=== PATIENT | female | born 1985 | race Caucasian/White ===

== ENCOUNTER 2018-11-11 08:56 | Emergency (ER) | payer OTHER ==
[2018-11-11 09:13] LABS: Bilirubin Negative (Negative); Blood, Urine Negative (Negative); Glucose, Urine (Dipstick) Negative (Negative); Leukocyte Small (Negative); Nitrite Negative (Negative); Protein, Urine (Dipstick) Negative (Neg-Trace); Urobilinogen 0.2 mg/dL (0.2-1.0)
[2018-11-11 09:16] LABS: Clarity Slightly Cloudy (Clear)
[2018-11-11 09:20] LABS: Pregnancy Test - Urine (BHCG) Negative (Negative); Pregu Control Background? CLEAR/WHITE (CLR/WHITE); Pregu Control Bar Appear? YES (CONTROL BAR)
[2018-11-11 09:30] LABS: Bacteria/HPF Rare-Few HPF (None Seen); Hyaline Casts/LPF NONE SEEN LPF (0-3 Hyaline); RBC/HPF 0-3 HPF (0-3); Squamous Epithelial 0-3 HPF (0-3); WBC/HPF 0-3 HPF (0-3)
== END 2018-11-11 09:33 | disposition home or self-care (01) ==
LOC: SCSER 08:56
DX: M54.5 Low back pain (principal); D64.9 Anemia, unspecified
CPT/HCPCS: 81003; 81015; 81025; 99283

== ENCOUNTER 2019-04-30 13:29 | Emergency (ER) | payer OTHER ==
[2019-04-30 14:22] LABS: Bilirubin Negative (Negative); Blood, Urine Moderate (Negative); Clarity CLEAR (Clear); Glucose, Urine (Dipstick) Negative (Negative); Leukocyte Negative (Negative); Nitrite Negative (Negative); Protein, Urine (Dipstick) Negative (Neg-Trace); Urobilinogen 0.2 mg/dL (0.2-1.0)
[2019-04-30 14:25] LABS: Bacteria/HPF None Seen HPF (None Seen); Hyaline Casts/LPF 0-3 HYALINE CAST LPF (0-3 Hyaline); RBC/HPF 0-3 HPF (0-3); Squamous Epithelial None Seen HPF (0-3); WBC/HPF 0-3 HPF (0-3)
== END 2019-04-30 15:23 | disposition home or self-care (01) ==
LOC: ERS 13:29
DX: O20.0 Threatened abortion (principal); D50.9 Iron deficiency anemia, unspecified; Z3A.01 Less than 8 weeks gestation of pregnancy
CPT/HCPCS: 36415; 81003; 81015; 84702; 99284

== ENCOUNTER 2019-05-01 14:25 | Emergency (ER) | payer OTHER ==
[2019-05-01 15:43] LABS: #Eosinphils 0.2 thou/uL (0.0-0.7); #Lymphocytes 2.3 thou/uL (1.20-3.40); #Monocytes 0.4 thou/uL (0.11-0.59); #Neutrophils 6.1 thou/uL (1.40-6.50); %Basophils 0.4 % (0.0-1.0); %Eosinophils 2.3 % (0.0-10.0); %Lymphocytes 25.2 % (21.0-51.0); %Monocytes 4.6 % (0.0-10.0); %Neutrophils 67.5 % (42.0-75.0); Hemoglobin 12.8 g/dL (12.0-16.0); Mean Corpuscular HGB CONC 33.2 g/dL (32.0-36.0); Mean Corpuscular Hemoglobin 27.5 pg (27.0-31.0); Mean Corpuscular Volume 82.7 fL (78.0-98.0); Mean Platelet Volume 7.9 fL (7.4-10.4); Platelet Count 302 thou/uL (130-400); RBC Distribution Width 13.7 % (11.5-14.5); Red Blood Cell (RBC) Count 4.65 mill/uL (4.20-5.40); White Blood Cell (WBC) Count 9.1 thou/uL (4.8-10.8)
[2019-05-01 16:00] LABS: ALT (SGPT) 19 U/L (8-55); AST (SGOT) 16 U/L (5-34); Albumin 4.3 g/dL (3.5-5.0); Alkaline Phosphatase 92 U/L (40-150); Anion Gap 12 mmol/L (10-20); BUN (Urea Nitrogen) 7 mg/dL (7.0-18.7); Bilirubin, Total 0.3 mg/dL (0.2-1.2); Calc. Creatinine Clearance 0 mL/min (70-130); Calcium 9.2 mg/dL (7.8-10.44); Carbon Dioxide 26 mmol/L (22-29); Chloride 104 mmol/L (98-107); Estimated GFR-MDRD Greater than 90; Globulin 3.3 g/dL (2.4-3.5); Glucose 86 mg/dL (70-105); Potassium 3.9 mmol/L (3.5-5.1); Protein, Total 7.6 g/dL (6.0-8.3); Sodium 138 mmol/L (136-145)
--- NOTE | 2019-05-01 17:05 | ULT ---
Exam: Pelvic ultrasound using transvaginal approach. Exam includes vascular duplex with color and spectral Doppler imaging of the ovaries. FINDINGS: The uterus measures 9.2 x 4.9 x 6.0 cm. There is an intrauterine small gestational sac and yolk sac. A questionable pole is seen which would indicate gestational age of 6 weeks 0 days. Questionable heart rate at 71 bpm which is abnormally low. By gestational sac size gestational age should be 5 weeks 2 days. Small hypodensity within the uterine fundus possibly a small fibroid. Right ovary measures 1.4 x 2.4 x 3.1 cm. Left ovary measures 2.0 x 3.0 x 3.3 cm Vascular duplex exam was limited. No evidence for ovarian torsion. IMPRESSION: Evidence for an intrauterine gestational sac containing a yolk sac and possible pole with possi ble heart rate at 71 bpm. Follow-up serum hCGs are recommended. If there remains concern for viability, follow-up ultrasound study in a week should be considered.
== END 2019-05-01 17:47 | disposition home or self-care (01) ==
LOC: ERS 14:25
DX: O20.9 Hemorrhage in early pregnancy, unspecified (principal); O99.011 Anemia complicating pregnancy, first trimester; Z3A.01 Less than 8 weeks gestation of pregnancy
CPT/HCPCS: 36415; 76856; 80053; 84702; 85025

== ENCOUNTER 2019-05-05 08:13 | Emergency (ER) | payer OTHER ==
[2019-05-05 09:15] LABS: #Eosinphils 0.2 thou/uL (0.0-0.7); #Monocytes 0.5 thou/uL (0.11-0.59); #Neutrophils 7.1 thou/uL (1.40-6.50); %Basophils 0.5 % (0.0-1.0); %Eosinophils 1.9 % (0.0-10.0); %Monocytes 4.6 % (0.0-10.0); %Neutrophils 72.9 % (42.0-75.0); Hemoglobin 12.5 g/dL (12.0-16.0); Mean Corpuscular HGB CONC 32.4 g/dL (32.0-36.0); Mean Corpuscular Hemoglobin 27.1 pg (27.0-31.0); Mean Corpuscular Volume 83.6 fL (78.0-98.0); Mean Platelet Volume 7.9 fL (7.4-10.4); Platelet Count 295 thou/uL (130-400); RBC Distribution Width 13.8 % (11.5-14.5); Red Blood Cell (RBC) Count 4.62 mill/uL (4.20-5.40); White Blood Cell (WBC) Count 9.8 thou/uL (4.8-10.8)
[2019-05-05 09:37] LABS: ALT (SGPT) 26 U/L (8-55); AST (SGOT) 21 U/L (5-34); Albumin 4.4 g/dL (3.5-5.0); Alkaline Phosphatase 90 U/L (40-150); Anion Gap 12 mmol/L (10-20); BUN (Urea Nitrogen) 12 mg/dL (7.0-18.7); Bilirubin, Total 0.3 mg/dL (0.2-1.2); Calc. Creatinine Clearance 0 mL/min (70-130); Calcium 9.7 mg/dL (7.8-10.44); Carbon Dioxide 25 mmol/L (22-29); Chloride 105 mmol/L (98-107); Estimated GFR-MDRD Greater than 90; Globulin 3.2 g/dL (2.4-3.5); Glucose 89 mg/dL (70-105); Potassium 4.1 mmol/L (3.5-5.1); Protein, Total 7.6 g/dL (6.0-8.3); Sodium 138 mmol/L (136-145)
[2019-05-05 10:36] LABS: Bilirubin Small (Negative); Blood, Urine Large (Negative); Glucose, Urine (Dipstick) Negative (Negative); Leukocyte Negative (Negative); Nitrite Negative (Negative); Protein, Urine (Dipstick) 100 mg/dL (Neg-Trace); Urobilinogen 0.2 mg/dL (Less than 2)
[2019-05-05 10:44] LABS: Clarity Hazy (Clear)
[2019-05-05 10:46] LABS: Bacteria/HPF None Seen HPF (None Seen); RBC/HPF Greater than 50 HPF (0-3); Squamous Epithelial 0-3 HPF (0-3); WBC/HPF 0-3 HPF (0-3)
--- NOTE | 2019-05-05 11:57 | ULT ---
PELVIC ULTRASOUND: Date: 05/05/19 HISTORY: Irregular increase in beta HCG level with increasing vaginal bleeding. COMPARISON: 05/01/19. FINDINGS: There is a punctate echogenic focus seen within the cervix, which may represent either a prominent ve ssel or small calcification. There is a very small hypoechoic focus within the anterior aspect body of the uterus measuring 0.7 cm , which may represent a small uterine fibroid. There is an irregular collection seen within the endometrial canal. This area was also seen on the pr ior exam. There is an oval echogenic structure within the fluid collection. This may represent gestat ional sac with a pole. The crown-rump length measures 0.6 cm, which would correspond to gestati onal age by ultrasound of 6 weeks and 3 days. Cardiac Doppler evaluation of this region does demonstr ate what appears to be heart tones, but the heart tones are diminished at 64 beats/minute . On the prior examination, there was suggestion of a yolk sac, but this is not appreciated on today' s examination. The ovaries demonstrate a grossly normal sonographic appearance bilaterally with evidence of flow wit hin each ovary based on spectral analysis of the Doppler waveform. No free fluid is seen in the cul-de-sac. IMPRESSION: Persistent collection within the endometrial canal, but the collection is slightly irregular in appea dane. There was suggestion of a yolk sac on the prior study, which is not appreciated on today's exa mination. However, there is an echogenic structure within this heterogeneous collection which may rep resent a small pole, and Doppler evaluation of this region again demonstrates what appears to b e heart tones with a heart rate of 64 beats/minute, which is abnormally decreased. ELECTROMECHANIC consultation is suggested for further evaluation. POS: [facility]
== END 2019-05-05 11:55 | disposition home or self-care (01) ==
LOC: ERS 08:13
DX: O03.4 Incomplete spontaneous abortion without complication (principal); D50.9 Iron deficiency anemia, unspecified
CPT/HCPCS: 36415; 76856; 80053; 81003; 81015; 84702; 85025; 86900; 86901

== ENCOUNTER 2019-05-12 08:52 | Outpatient (CLI) | payer OTHER ==
--- NOTE | 2019-05-12 12:04 | ULT ---
PELVIC ULTRASOUND INCLUDING TRANSABDOMINAL AND TRANSVAGINAL AND VASCULAR DUPLEX: HISTORY: Threatened AB. COMPARISON: 05/05/2019. FINDINGS: The uterus measures 9.5 x 5.0 x 6.7 cm. The right ovary measures 3.0 x 2.3 x 2.6 cm. The left ovary measures 2.4 x 2.1 x 2.9 cm. Again noted is a small oval fluid collection within the endometrium showing no significant change fro m the prior study. No evidence for heart rate. Appearance is most consistent with that of mis sed AB. Correlate with serum HCG. Unremarkable right and left ovaries. Probable very small uterine fundal fibroid, stable. Vascular flow is documented to both ovaries. No evidence for ovarian torsion. No abscess or abnorma l fluid collection. IMPRESSION: Overall stable small abnormal gestational sac within the uterus without evidence for heart rate . Findings are consistent with that of incomplete . Correlate with today's serum HCG. POS: [facility]
== END 2019-05-12 08:53 | disposition home or self-care (01) ==
LOC: SCSULT 08:52
PROVIDERS: ATTEND Nurse Practitioner
DX: O20.0 Threatened abortion (principal); R93.89 Abnormal findings on diagnostic imaging of other specified body structures
CPT/HCPCS: 76856

== ENCOUNTER 2019-10-25 09:10 | Emergency (ER) | payer MEDICAID, OTHER, SELFPAY ==
[2019-10-25 09:52] LABS: #Basophils 0.1 thou/uL (0.0-0.2); #Eosinphils 0.1 thou/uL (0.0-0.7); #Lymphocytes 1.8 thou/uL (1.20-3.40); #Monocytes 0.3 thou/uL (0.11-0.59); #Neutrophils 3.7 thou/uL (1.40-6.50); %Basophils 1.1 % (0.0-1.0); %Eosinophils 1.1 % (0.0-10.0); %Monocytes 5.4 % (0.0-10.0); %Neutrophils 62.5 % (42.0-75.0); Hemoglobin 13.4 g/dL (12.0-16.0); Mean Corpuscular HGB CONC 33.8 g/dL (32.0-36.0); Mean Corpuscular Volume 82.8 fL (78.0-98.0); Mean Platelet Volume 7.7 fL (7.4-10.4); Platelet Count 302 thou/uL (130-400); RBC Distribution Width 13.1 % (11.5-14.5); Red Blood Cell (RBC) Count 4.77 mill/uL (4.20-5.40); White Blood Cell (WBC) Count 5.9 thou/uL (4.8-10.8)
[2019-10-25 09:57] LABS: BHCG - Serum POSITIVE (NEGATIVE); Pregs Control Background? CLEAR/WHITE (CLR/WHITE); Pregs Control Bar Appear? YES (CONTROL BAR)
--- NOTE | 2019-10-25 10:46 | ULT ---
US Pelvic Transvag W Doppler HISTORY: Pelvic pain COMPARISON: None TECHNIQUE: Multiple grayscale and color Doppler images were obtained in a transabdominal and transvag inal pelvic ultrasound. Spectral analysis of the Doppler waveforms of the ovaries were performed. FINDINGS: CERVIX: Unremarkable UTERUS: Normal in size without focal abnormality. ENDOMETRIAL STRIPE: 7.3 mm. No free fluid is present. There are no discrete ovarian lesions visualized. Doppler color flow reveals flow to each ovary. IMPRESSION: No acute pelvic abnormality. Possibility of an ectopic is not excluded by a nor mal pelvic ultrasound. Therefore correlation with beta hCG values and continued clinical follow-up is recommended.
== END 2019-10-25 11:26 | disposition home or self-care (01) ==
LOC: ERS 09:10
DX: O20.9 Hemorrhage in early pregnancy, unspecified (principal); O99.011 Anemia complicating pregnancy, first trimester; Z3A.01 Less than 8 weeks gestation of pregnancy
CPT/HCPCS: 36415; 76856; 84702; 84703; 85025; 86900; 86901

== ENCOUNTER 2019-10-27 08:29 | Emergency (ER) | payer SELFPAY | END 2019-10-27 10:25 | disposition home or self-care (01) | LOC: ERS 08:29 | DX: O03.9 Complete or unspecified spontaneous abortion without complication (principal); D50.9 Iron deficiency anemia, unspecified | CPT/HCPCS: 36415; 84702; 99284 ==

== ENCOUNTER 2020-07-22 03:35 | Day surgery (SDC) ==
[2020-07-22 03:57] VITALS: BMI 36.0
[2020-07-22] MEDS ORDERED: hydrALAZINE 20 MG/ML VIAL SLOW IVP PRN (04:14)
--- NOTE | 2020-07-22 04:15 | PDOC.LDHP ---
Labor and Delivery H&P Chief complaint: contractions HPI: 35YO @ 31.4 WGA presenting for evaluation for contractions. States while lying at bed @ ~1200 she woke up having sharp shooting pains in her R lower back with radiation around to her right groin. Reported to nursing staff it feels like she has been having "5 mini contractions every minute." States the pain has been constant since its onset and waxes & wanes in intensity from 3-8/10. Is exacerbated with movement or changing positions. Denies any associated fever/chills, dysuria, hematuria or N/V/D/C. Endorses frequent movement. Tried soaking in the tub before going to bed but did not try anything else for pain relief before deciding to come in for evaluation. Current gestational age (weeks): 31 (31.4) Due date: 09/19/20 Dating criteria: last menstrual period Grav: 7 Para: 4 (1396) OB History Details: #1-4: term SVDs w/o complications #5-6: 2 1T SABs Abnormal US findings: No Past Medical History: Obesity Current medications: pre-tonia vitamins Previous surgical history: other (bilateral plantar fasciitis release) Allergies/Adverse Reactions: Allergies Allergy/AdvReac Type Severity Reaction Status Date / Time Penicillins Allergy Intermediate Hives Verified 07/22/20 03:52 Social history: none - Physical Exam Vital signs reviewed and normal: yes General: other (mild distress with movement) Heart: RRR Lungs: nonlabored breathing Abdomen: NTTP Extremeties: no edema FHT: category 1 [place] contractions every: none noted - OB Labs Blood type: O RH: positive Antibody Screen: negative HIV: negative RPR: negative HEPSAg: negative 1 hour GCT: positive (137) 3 hour GTT: negative GBS: unknown Urine drug screen: negative Rubella: immune - Plan Plan: other -: 35YO @ 31.4 WGA presenting for evaluation for contractions. Right low back and pelvic pain: - No contractions palpated or noted on the monitor since arrival. FHTs reassuring w/ and fetus has been very active which has been audible on the monitor since arrival as well. No urinary symptoms or CVA tenderness & vitals WNLs. Pain exacerbated with movement and movement on exam most consistent for MSK pain in . Offered stadol IM x1 for pain control and to help her sleep but patient reported she preferred just to take tylenol at home. Dispo: Will discharge home with return precautions & instructions to heating pads, belly band, soaking in tub, and regularly RUSTY tylenol and/or benadryl for pain relief & rest. Instructed to keep appt with PCP on 07/27/2020. Addendum - Attending - Attending Attestation Date/Time: 07/22/20 [id number] I personally evaluated the patient and discussed the management with Dr. Velazquez. I agree with the History, Examination, Assessment and Plan documented above.
[2020-07-22] MEDS ORDERED: Butorphanol Tartrate 1 MG/ML VIAL IM ONE (05:00)
== END 2020-07-22 04:55 | disposition home or self-care (01) ==
LOC: L&D/OP 03:35
PROVIDERS: ATTEND Obstetrics & Gynecology
DX: O47.03 False labor before 37 completed weeks of gestation, third trimester (principal); Z3A.31 31 weeks gestation of pregnancy; Z88.0 Allergy status to penicillin
CPT/HCPCS: 99282

== ENCOUNTER 2020-08-31 09:44 | Inpatient (IN) | payer MEDICAID, OTHER ==
[2020-08-31] MEDS ORDERED: Promethazine HCl 25 MG/ML VIAL IM PRN ×2 (10:20→22:28)
[2020-08-31] MEDS ORDERED: Ondansetron PF 4 MG/2 ML Vial IVP PRN ×2 (10:20→22:28)
[2020-08-31] MEDS ORDERED: HYDROcodone/Acetaminophen 5/325 mg Tablet PO PRN ×2 (10:20)
[2020-08-31] MEDS ORDERED: Lidocaine 1% (PF) 30 ML VIAL SC PRN (10:20)
[2020-08-31] MEDS ORDERED: NS / Oxytocin 40 units/1000ml 1,000 ML IV PRN (10:20)
[2020-08-31] MEDS ORDERED: Ibuprofen 800 MG TAB PO PRN (10:20)
[2020-08-31] MEDS ORDERED: hydrALAZINE 20 MG/ML VIAL SLOW IVP PRN (10:20)
[2020-08-31] MEDS ORDERED: NS w/ Oxytocin 10 units 500 ML IV SCH ×2 (10:30)
[2020-08-31 10:33] VITALS: BMI 37.3
[2020-08-31] MEDS ORDERED: Bupivacaine HCl 0.5%/Epinephrine 1:200,000/PF 30 ml Vial ONE (12:06)
[2020-08-31] MEDS: Lactated Ringer's 1,000 ML IV SCH ×3 (12:21→22:31)
[2020-08-31] MEDS: Clindamycin/D5W 900 MG in Premix Bag 1 BAG IVPB SCH ×2 (12:22→19:50)
[2020-08-31 12:34] LABS: Hemoglobin 10.9 g/dL (12.0-16.0); Mean Corpuscular HGB CONC 33.4 g/dL (32.0-36.0); Mean Corpuscular Hemoglobin 25.5 pg (27.0-31.0); Mean Corpuscular Volume 76.4 fL (78.0-98.0); Mean Platelet Volume 9.2 fL (7.4-10.4); Platelet Count 291 thou/uL (130-400); RBC Distribution Width 15.3 % (11.5-14.5); Red Blood Cell (RBC) Count 4.28 mill/uL (4.20-5.40); White Blood Cell (WBC) Count 10.3 thou/uL (4.8-10.8)
[2020-08-31 12:50] LABS: ALT (SGPT) 7 U/L (8-55); AST (SGOT) 11 U/L (5-34); Albumin 3.5 g/dL (3.5-5.0); Alkaline Phosphatase 212 U/L (40-110); Anion Gap 16 mmol/L (10-20); BUN (Urea Nitrogen) 6 mg/dL (7.0-18.7); Bilirubin, Total 0.2 mg/dL (0.2-1.2); Calc. Creatinine Clearance 203 mL/min (70-130); Calcium 8.8 mg/dL (7.8-10.44); Carbon Dioxide 20 mmol/L (22-29); Chloride 106 mmol/L (98-107); Estimated GFR-MDRD Greater than 90; Globulin 3.2 g/dL (2.4-3.5); Glucose 85 mg/dL (70-105); Potassium 4.1 mmol/L (3.5-5.1); Protein, Total 6.7 g/dL (6.0-8.3); Sodium 138 mmol/L (136-145)
[2020-08-31 13:08] LABS: HBSAg Index 0.19 S/CO (0-0.99); Hep B Surf Ag Non-Reactive S/CO (NonReactive)
[2020-08-31 13:12] LABS: Syphilis Antibody Nonreactive (Nonreactive); Syphilis Antibody Index 0.07 S/CO (<1.00 Non-Reactive)
--- NOTE | 2020-08-31 13:12 | PDOC.LDHP ---
Labor and Delivery H&P Chief complaint: other (sent from clinic w elevated BP) HPI: Pt seen in clinic today w BP 140-150/90s. No LOCKE. Current gestational age (weeks): 37 Due date: 09/19/20 Dating criteria: last menstrual period, first trimester ultrasound Grav: 7 Para: 4 OB History Details: previous x 4 Current complications: gestational hypertension Abnormal US findings: No Current medications: iron Previous surgical history: other (foot) Allergies/Adverse Reactions: Allergies Allergy/AdvReac Type Severity Reaction Status Date / Time Penicillins Allergy Intermediate Hives Verified 08/31/20 09:56 Social history: none - Physical Exam Vital signs reviewed and normal: yes (mild range to normal BP) General: NAD Heart: RRR Lungs: CTAB Abdomen: gravid Extremeties: no edema FHT: category 1 - Vaginal Exam cm dilated: 1 Effacement: 25% Station: -3 - OB Labs Blood type: O RH: positive Antibody Screen: negative HIV: negative RPR: negative HEPSAg: negative 1 hour GCT: positive 3 hour GTT: WNL GBS: positive (clinda sensitive) Urine drug screen: negative Rubella: immune - Assessment L&D Assessment: medically indicated induction (PIH at term) - Plan Plan: admit to L&D, cervical ripening, labor augmentation if indicated, GBS antibiotic prophylaxis, informed consent obtained, anesthesia consult for pain management -: IOL for elevated BP at term. Normal to mild range BP, one severe range when collecting C19 nasal swab. AROM on admit exam with clear fluid noted.
[2020-08-31] MEDS: NIFEdipine 10 MG CAP PO PRN ×2 (15:17→19:19)
--- NOTE | 2020-08-31 16:28 | PDOC.LDPN ---
Labor & Delivery Progress Note - Subjective Subjective: painful contractions - Objective Vital signs reviewed and normal: yes General: breathing through contractions Dilation: 3 Effacement: 75% Station: -2 FHT: category 1 [place] contractions every: 5 - Assessment (1) 37 weeks gestation of Code(s): Z3A.37 - 37 WEEKS GESTATION OF Current Visit: Yes Status: Acute (2) Gestational hypertension Code(s): O13.9 - GESTATIONAL HTN W/O SIGNIFICANT PROTEINURIA, UNSP TRIMESTER Current Visit: Yes Status: Acute Plan: continue plan of care
[2020-08-31] MEDS: Butorphanol Tartrate 1 MG/ML VIAL SLOW IVP PRN ×2 (17:01→18:03)
[2020-08-31] MEDS ORDERED: Misoprostol 200 MCG TAB ONE (19:59)
[2020-08-31] MEDS ORDERED: Carboprost 250 MCG/ML AMP ONE (19:59)
--- NOTE | 2020-08-31 20:46 | PDOC.LDPN ---
Labor & Delivery Progress Note - Subjective Subjective: painful contractions - Objective General: breathing through contractions Dilation: 7 Effacement: 75% Station: -1 FHT: category 1 - Assessment (1) 37 weeks gestation of Code(s): Z3A.37 - 37 WEEKS GESTATION OF Current Visit: Yes Status: Acute (2) Gestational hypertension Code(s): O13.9 - GESTATIONAL HTN W/O SIGNIFICANT PROTEINURIA, UNSP TRIMESTER Current Visit: Yes Status: Acute Plan: continue plan of care
[2020-08-31] MEDS ORDERED: Fentanyl 4 mcg/Bup 0.1% Cadd 100 ML ONE (21:43)
[2020-08-31] MEDS ORDERED: Naloxone HCl 0.4 mg/ml Vial IVP PRN ×2 (22:28)
[2020-08-31] MEDS ORDERED: Lactated Ringer's 500 ML IV PRN (22:28)
[2020-08-31] MEDS ORDERED: Acetaminophen 325 MG TAB PO PRN (22:28)
[2020-08-31] MEDS ORDERED: diphenhydrAMINE 50 MG/ML VIAL IVP PRN (22:28)
[2020-08-31] MEDS ORDERED: EPHEDRINE 25 MG/5 ML SYRINGE SLOW IVP PRN (22:28)
[2020-08-31] MEDS ORDERED: Fentanyl 4 mcg/Bupivacaine 0.1% Cassette 100 ML EPIDURAL SCH (22:30)
[2020-08-31] MEDS ORDERED: Communication Order-Pharmacy FS SCH (22:30)
--- NOTE | 2020-09-01 01:41 | PDOC.OPDEL ---
OB Operative/Delivery Note Delivery Dr/Surgeon: Luis Pre-Delivery Diagnosis: medically indicated induction (PIH @ term) Procedure/Post Delivery Dx: spontaneous vaginal delivery Weeks gestation: 37 Anesthesia: epidural - Findings A Sex: female - 1 min: 8 - 5 min: 9 - Additional Findings/Plan Placenta delivered: spontaneous Repaired Obstetrical Laceration: none Estimated blood loss: 400ml Compilations/Other Findings: uterine atony resolved w pitocin and hemabate Post delivery plan: routine recovery
[2020-09-01] MEDS ORDERED: diphenhydrAMINE 25 MG CAP PO PRN (04:23)
[2020-09-01] MEDS ORDERED: hydrALAZINE 20 MG/ML VIAL SLOW IVP PRN (04:23)
[2020-09-01] MEDS ORDERED: Milk Of Magnesia 30 ML UDCUP PO PRN (04:23)
[2020-09-01] MEDS ORDERED: Lanolin Ointment 7 GM TUBE TOP PRN (04:23)
[2020-09-01] MEDS ORDERED: NS / Oxytocin 40 units/1000ml 1,000 ML IV SCH (04:23)
[2020-09-01] MEDS ORDERED: Bisacodyl 10 MG SUPP PR PRN (04:23)
[2020-09-01] MEDS ORDERED: HYDROcodone/Acetaminophen 5/325 mg Tablet PO PRN ×3 (04:23→06:32)
[2020-09-01] MEDS ORDERED: Ondansetron PF 4 MG/2 ML Vial IVP PRN (04:23)
[2020-09-01] MEDS ORDERED: Preparation H Ointment 28 GM TUBE PR PRN (04:23)
--- NOTE | 2020-09-01 08:15 | PDOC.PP ---
Post Progress Note Post Day #: 0-1 Subjective: No PIH symptoms. PO intake tolerated: yes Flatus: yes Ambulation: yes Vital Signs (12 hours) Temp Pulse Resp BP Pulse Ox 09/01/20 08:09 97.8 F 87 20 144/80 H 98 09/01/20 05:30 97.9 F 97 18 125/67 09/01/20 04:30 98 09/01/20 04:23 98.2 F 90 18 137/71 99 Weight Weight 204 lb - Physical Examination Abdominal: lochia, no distention, appropriately TTP Extremities: negative homans (B) Result Diagrams: 08/31/20 11:46 08/31/20 11:46 Additional Labs: Post Labs Hep Bs Antigen Non-Reactive S/CO (NonReactive) 08/31/20 11:46 Blood Type O POSITIVE 08/31/20 11:46 - Assessment/Plan Post day 0-1. Induction for PIH. Majority of blood pressures normotensive. Anticipate discharge in AM. Meds if blood pressures tren upwaeds- observe today...
[2020-09-01] MEDS: Prenatal Vitamin 1 TAB PO SCH (08:39)
[2020-09-01] MEDS: Docusate Calcium (SURFAK) 240 MG CAP PO SCH ×2 (08:39→21:01)
[2020-09-01] MEDS: Ferrous Sulfate 325 MG TAB PO SCH ×2 (08:40→17:03)
[2020-09-01] MEDS ORDERED: Adacel (T-DAP) 0.5 ML SYRINGE IM ONE (09:00)
[2020-09-01 11:59] LABS: SARS-CoV-2 MS2 Positive; SARS-CoV-2 N Gene Negative; SARS-CoV-2 S Gene Negative; SARS-CoV-2 by NAA Not Detected (NotDetected); SARS-CoV-2 orf1ab Negative
[2020-09-01] MEDS: Ibuprofen 800 MG TAB PO SCH ×3 (13:29→21:02)
[2020-09-01] MEDS: HYDROcodone/Acetaminophen 5/325 mg Tablet PO PRN ×2 (16:59→21:02)
[2020-09-01] MEDS: Clindamycin/D5W 900 MG in Premix Bag 1 BAG IVPB SCH (19:31)
[2020-09-02 01:13] VITALS: BP 125/68; TEMP 97.9
--- NOTE | 2020-09-02 04:47 | PDOC.PP ---
Post Progress Note Post Day #: 1 Subjective: Doing well, desires DC today if able due to other children at home PO intake tolerated: yes Flatus: yes Ambulation: yes Vital Signs (12 hours) Temp Pulse Resp BP Pulse Ox 09/02/20 01:00 97.9 F 76 16 125/68 09/01/20 20:10 97.7 F 81 16 134/79 98 09/01/20 18:00 97.7 F 86 16 135/72 Weight Weight 204 lb - Physical Examination General: NAD Respiratory: non-labored breathing Abdominal: + bowel sounds, lochia, no distention, appropriately TTP Extremities: negative homans (B) Neurological: no gross focal deficits Psychiatric: A&Ox3, normal affect Result Diagrams: 08/31/20 11:46 08/31/20 11:46 Additional Labs: Post Labs Hep Bs Antigen Non-Reactive S/CO (NonReactive) 08/31/20 11:46 Blood Type O POSITIVE 08/31/20 11:46 (1) Vaginal delivery Code(s): O80 - ENCOUNTER FOR FULL-TERM UNCOMPLICATED DELIVERY Status: Acute - Assessment/Plan PPD1 for this multigravida. Desires to go gome today if possible. BPs stable and wnl. OK for noon DC
[2020-09-02] MEDS: Ibuprofen 800 MG TAB PO SCH (05:10)
[2020-09-02] MEDS: Docusate Calcium (SURFAK) 240 MG CAP PO SCH (07:41)
[2020-09-02] MEDS: Prenatal Vitamin 1 TAB PO SCH (07:41)
[2020-09-02] MEDS: HYDROcodone/Acetaminophen 5/325 mg Tablet PO PRN (07:41)
== END 2020-09-02 10:01 | disposition home or self-care (01) | DRG 807 ==
LOC: L&D 09:44 → 3SW 09-01 04:20
PROVIDERS: ADMIT Obstetrics & Gynecology; ATTEND Obstetrics & Gynecology
PROC: 10907ZC Drainage of Amniotic Fluid, Therapeutic from Products of Conception, Via Natural or Artificial Opening (ICD-10-PCS; 2020-08-31)
PROC: 3E0P7VZ Introduction of Hormone into Female Reproductive, Via Natural or Artificial Opening (ICD-10-PCS; 2020-08-31)
PROC: 10E0XZZ Delivery of Products of Conception, External Approach (ICD-10-PCS; principal; 2020-09-01)
DX: O13.4 Gestational [pregnancy-induced] hypertension without significant proteinuria, complicating childbirth (principal); Z37.0 Single live birth; Z3A.37 37 weeks gestation of pregnancy; Z88.0 Allergy status to penicillin; O99.824 Streptococcus B carrier state complicating childbirth; Z20.828 Contact with and (suspected) exposure to other viral communicable diseases; O62.2 Other uterine inertia
CPT/HCPCS: 36415; 51702; 80053; 85027; 86780; 86850; 86900; 86901; 87340; 87635; J0595; J1200; J2590; J3490; U0003

== ENCOUNTER 2021-01-15 10:37 | Emergency (ER) | payer OTHER ==
[2021-01-15 11:45] LABS: Hemoglobin 11.3 g/dL (12.0-16.0); Mean Corpuscular HGB CONC 30.3 g/dL (32.0-36.0); Mean Corpuscular Hemoglobin 22.7 pg (27.0-31.0); Mean Corpuscular Volume 74.7 fL (78.0-98.0); Platelet Count 325 thou/uL (130-400); RBC Distribution Width 15.6 % (11.5-14.5); Red Blood Cell (RBC) Count 4.97 mill/uL (4.20-5.40); White Blood Cell (WBC) Count 7.1 thou/uL (4.8-10.8)
[2021-01-15 11:50] LABS: ALT (SGPT) 16 U/L (8-55); AST (SGOT) 13 U/L (5-34); Albumin 4.3 g/dL (3.5-5.0); Alkaline Phosphatase 104 U/L (40-110); Anion Gap 12 mmol/L (10-20); BUN (Urea Nitrogen) 10 mg/dL (7.0-18.7); Bilirubin, Total 0.3 mg/dL (0.2-1.2); Calc. Creatinine Clearance 0 mL/min (70-130); Calcium 9.3 mg/dL (7.8-10.44); Carbon Dioxide 23 mmol/L (22-29); Chloride 106 mmol/L (98-107); Globulin 3.4 g/dL (2.4-3.5); Glucose 91 mg/dL (70-105); Potassium 3.7 mmol/L (3.5-5.1); Protein, Total 7.7 g/dL (6.0-8.3); Sodium 137 mmol/L (136-145)
[2021-01-15 11:54] LABS: #Eosinphils 0.1 thou/uL (0.0-0.7); #Lymphocytes 1.9 thou/uL (1.20-3.40); #Monocytes 0.3 thou/uL (0.11-0.59); #Neutrophils 4.7 thou/uL (1.40-6.50); %Basophils 0.6 % (0.0-1.0); %Eosinophils 1.7 % (0.0-10.0); %Lymphocytes 26.8 % (21.0-51.0); %Monocytes 4.3 % (0.0-10.0); %Neutrophils 66.6 % (42.0-75.0)
[2021-01-15 12:18] LABS: Elliptocytes SLIGHT = 2-5 cells (100X) (0-1/hpf); Hypochromia SLIGHT = 6-15 cells (100X) (0-5/hpf); MDiff Complete? YES; Microcytosis SLIGHT = 6-15 cells (100X) (0-5/hpf); Platelet Morphology Comment Appears Adequate
[2021-01-15 14:08] LABS: Bilirubin Negative (Negative); Blood, Urine 2+ (Negative); Clarity Clear (Clear); Glucose, Urine (Dipstick) Normal (Negative); Ketone, Urine 10 mg/dL (Negative); Leukocyte 25 Leu/uL (Negative); Nitrite Negative (Negative); Protein, Urine (Dipstick) Negative (Neg-Trace); RBC/HPF Greater than 50 HPF (0-3); Specific Gravity, Urine 1.012 (1.002-1.036); Squamous Epithelial 0-3 HPF (0-3); Urobilinogen Normal mg/dL (Less than 2)
[2021-01-15 14:20] LABS: Bacteria/HPF 1+ HPF (None Seen)
[2021-01-16 21:24] LABS: Chlamydia by PCR Not Detected (NotDetected); GC by PCR Not Detected (NotDetected)
== END 2021-01-15 14:56 | disposition home or self-care (01) ==
LOC: ERS 10:37
DX: O20.0 Threatened abortion (principal); O99.011 Anemia complicating pregnancy, first trimester; D50.9 Iron deficiency anemia, unspecified; Z79.899 Other long term (current) drug therapy; Z3A.01 Less than 8 weeks gestation of pregnancy
CPT/HCPCS: 36415; 76856; 80053; 81003; 81015; 84702; 85025; 86900; 86901; 87077; 87086; 87186; 87480; 87491; 87510; 87591; 87660

== ENCOUNTER 2023-09-05 07:04 | Outpatient (CLI) | payer OTHER ==
[2023-09-05 08:02] LABS: #Basophils 0.1 10x3/uL (0.0-0.2); #Eosinphils 0.2 10x3/uL (0.0-0.5); #Monocytes 0.4 10x3/uL (0.0-1.1); #Neutrophils 4.1 10x3/uL (1.5-8.4); %Basophils 0.9 % (0.0-2.0); %Eosinophils 3.1 % (0.0-6.0); %Lymphocytes 27.6 % (18.0-47.0); %Monocytes 5.7 % (0.0-10.0); %Neutrophils 62.5 % (40.0-75.0); Hematocrit 40.3 % (34.9-44.5); Hemoglobin 12.9 g/dL (12.0-15.5); Mean Corpuscular Hemoglobin 27.2 pg (27.0-33.0); Mean Corpuscular Volume 84.8 fl (81.6-98.3); Mean Platelet Volume 10.1 fl (7.4-10.4); Platelet Count 308 10x3/uL (150-450); RBC Distribution Width 13.4 % (11.5-14.5); Red Blood Cell (RBC) Count 4.75 10x6/uL (3.90-5.03); White Blood Cell (WBC) Count 6.5 10x3/uL (3.5-10.5)
[2023-09-05 08:23] LABS: ALT (SGPT) 18 U/L (8-55); AST (SGOT) 16 U/L (5-34); Albumin 4.5 g/dL (3.5-5.0); Alkaline Phosphatase 121 U/L (40-110); Bilirubin, Direct 0.2 mg/dL (0.1-0.3); Bilirubin, Total 0.5 mg/dL (0.2-1.2); Protein, Total 7.4 g/dL (6.0-8.3)
== END 2023-09-05 07:05 | disposition home or self-care (01) ==
LOC: LABBT 07:04
PROVIDERS: ATTEND Surgery
DX: Z01.812 Encounter for preprocedural laboratory examination (principal); K80.20 Calculus of gallbladder without cholecystitis without obstruction
CPT/HCPCS: 80076; 85025

== ENCOUNTER 2023-09-12 06:58 | Day surgery (SDC) | payer OTHER ==
[2023-09-05 07:31] VITALS: BMI 34.5
[2023-09-12] MEDS ORDERED: fentaNYL 50 mcg/mL 1 mL Vial ONE ×3 (08:26→10:43)
[2023-09-12] MEDS ORDERED: fentaNYL PF 100 MCG/2 ML SYRINGE ONE (08:27)
[2023-09-12] MEDS ORDERED: EPINEPHrine 1 MG/ML VIAL ONE ×2 (08:32→08:34)
[2023-09-12] MEDS ORDERED: Glucagon 1 MG/ML KIT ONE (08:32)
[2023-09-12] MEDS ORDERED: Bupivacaine 0.25% HCL 30 ML VIAL ONE (08:33)
[2023-09-12] MEDS ORDERED: Iopamidol 30 ML ONE (08:33)
[2023-09-12] MEDS ORDERED: LevoFLOXacin 500 mg/D5W 100 ML BAG ONE (08:55)
[2023-09-12] MEDS ORDERED: Midazolam HCl 2 mg/2 ml Vial ONE (09:02)
[2023-09-12] MEDS ORDERED: Rocuronium Bromide 10 MG/ML (10ML VIAL) ONE (09:18)
[2023-09-12] MEDS ORDERED: Ondansetron PF 4 MG/2 ML Vial ONE (09:18)
[2023-09-12] MEDS ORDERED: Dexamethasone 20 MG/5 ML VIAL ONE (09:18)
[2023-09-12] MEDS ORDERED: Ketorolac Tromethamine 30 MG/ML VIAL ONE (09:18)
[2023-09-12] MEDS ORDERED: PROPOFOL 200 MG/20 ML VIAL ONE (09:18)
[2023-09-12] MEDS ORDERED: SUGAMMADEX SODIUM 200 MG/2 ML VIAL ONE (09:53)
[2023-09-12] MEDS ORDERED: HYDROcodone/Acetaminophen 5/325 mg Tablet ONE (12:06)
== END 2023-09-12 12:33 | disposition home or self-care (01) ==
LOC: SDC 06:58
PROVIDERS: ATTEND Surgery
PROC: BF03YZZ Plain Radiography of Gallbladder and Bile Ducts using Other Contrast (ICD-10-PCS; principal; 2023-09-12)
PROC: 0FT44ZZ Resection of Gallbladder, Percutaneous Endoscopic Approach (ICD-10-PCS; principal; 2023-09-12)
DX: K80.10 Calculus of gallbladder with chronic cholecystitis without obstruction (principal); Z88.0 Allergy status to penicillin
CPT/HCPCS: 47532; 88304; C1889; J0171; J1100; J1611; J1885; J1956; J2250; J2405; J2704; J3010; Q9967; S0020